=== PATIENT | male | born 1970 | race Caucasian/White ===

== ENCOUNTER → 2018-06-06 07:00 | Outpatient (CLI) | payer SELFPAY ==
--- NOTE | 2018-06-06 07:02 | NM_ITS ---
SPECT MYOCARDIAL PERFUSION SCAN, REST AND STRESS: EXERCISE STRESS: [facility] REVIEW QGS EF AND WALL MOTION EVALUATION: QPS - PERFUSION EVALUATION: HISTORY: Abnormal EKG, Family history PROCEDURE: Rest imaging performed after administration of10.54 millicuries Tc MIBI. Dose administered at7:30 a.m., with imaging thereafter. Stress imaging was then performed following8 minutes of exercise stress. The patient achieved a heart [id number] with projected heart rate of148 . Resting BP138/86 with stress 168/86. At maximum exercise stress,32.3 millicuries Tc MIBI administered at9:15 a.m. with ahezuog86 minutes thereafter. FINDINGS: Perfusion Evaluation: The single slice spect images as well as the [facility] bull's-eye data summary were reviewed. Wall Motion and Ejection Fraction Evaluation: Gated SPECT review and analysis used to evaluate these features. There is a 57 % left ventricular ejection fraction. There seems to be good wall motion Uniform myocardial activity through stress and rest gated images calculated ejection fraction of 57% with normal wall motion IMPRESSION: Exercise-induced EKG abnormalities which corrected quickly into recovery. No scintigraphic evidence of exercise-induced myocardial ischemia with normal ejection fraction and normal wall motion
== END ==
PROVIDERS: PCP Internal Medicine; Visit Provider Internal Medicine
DX: Z01.818 Encounter for other preprocedural examination (principal)
CPT/HCPCS: 78452; 93017; 93306; A9502